=== PATIENT | male | born 1975 ===

== ENCOUNTER 2017-08-29 08:42 | Emergency (ER) | payer OTHER ==
[2017-08-29 09:07] LABS: #Basophils 0.1 thou/uL (0.0-0.2); #Eosinphils 0.1 thou/uL (0.0-0.7); #Lymphocytes 2.1 thou/uL (1.20-3.40); #Monocytes 0.5 thou/uL (0.11-0.59); #Neutrophils 2.6 thou/uL (1.40-6.50); %Basophils 1.4 % (0.0-1.0); %Eosinophils 1.4 % (0.0-10.0); %Monocytes 8.5 % (0.0-10.0); %Neutrophils 49.6 % (42.0-75.0); Hemoglobin 15.4 g/dL (14.0-18.0); Mean Corpuscular HGB CONC 34.3 g/dL (32.0-36.0); Mean Corpuscular Hemoglobin 32.1 pg (27.0-31.0); Mean Corpuscular Volume 93.6 fl (80.0-94.0); Mean Platelet Volume 7.3 fL (7.4-10.4); Platelet Count 190 thou/uL (130-400); RBC Distribution Width 12.1 % (11.5-14.5); Red Blood Cell (RBC) Count 4.79 mill/uL (4.70-6.10); White Blood Cell (WBC) Count 5.3 thou/uL (4.8-10.8)
[2017-08-29 09:31] LABS: CKMB 2.1 ng/mL (0-6.6); Troponin I Less than 0.010 ng/mL (< 0.028)
[2017-08-29 09:54] LABS: ALT (SGPT) 46 U/L (8-55); AST (SGOT) 29 U/L (5-34); Albumin 4.5 g/dL (3.5-5.0); Alkaline Phosphatase 43 U/L (40-150); Anion Gap 15 mmol/L (10-20); BUN (Urea Nitrogen) 11 mg/dL (8.9-20.6); Bilirubin, Total 0.7 mg/dL (0.2-1.2); CK (CPK) 230 U/L (30-200); Calc. Creatinine Clearance 0 mL/min (70-130); Calcium 9.5 mg/dL (7.8-10.44); Carbon Dioxide 25 mmol/L (22-29); Chloride 105 mmol/L (98-107); Estimated GFR-MDRD 70; Globulin 3.1 g/dL (2.4-3.5); Glucose 109 mg/dL (70-105); Potassium 4.5 mmol/L (3.5-5.1); Protein, Total 7.6 g/dL (6.0-8.3); Sodium 140 mmol/L (136-145)
--- NOTE | 2017-08-29 09:59 | RAD ---
PORTABLE CHEST 1 VIEW: Date; 08/29/17 Time: 0857 hours HISTORY: Chest pain. FINDINGS: The heart size is normal. No focal areas of consolidation, pneumothorax, or pleural effusions are see n. IMPRESSION: No radiographic evidence of acute cardiopulmonary process. POS: OFF
--- NOTE | 2017-08-29 10:35 | CT ---
CT ANGIOGRAM OF THORACIC AND ABDOMINAL AORTA: Date: 08/29/17 HISTORY: Chest pain. Left-sided chest pain with radiation to back. Evaluation for dissection. COMPARISON: None. TECHNIQUE: CT angiogram of thoracic and abdominal aorta are performed in the axial plane. Sagittal and coronal t hree-dimensional reformatted images are submitted for interpretation. FINDINGS: CHEST CT: No mediastinal mass, lymphadenopathy, or hematoma. Heart size is within normal limits. No pericardial fluid. Trachea and central bronchi are patent. No consolidation or masses. No pneumothorax or pleura l effusion. ABDOMEN CT: Hypoattenuation of the liver due to hepatic steatosis. The spleen, pancrease, and adrenal glands have appropriate enhancement. Symmetric enhancement of the kidneys. No obstructive uropathy. Visualized alimentary canal is unremarkable. Normal caliber appendix. Symmetric attenuation of psoas muscles. Scattered nonspecific mesenteric lymph nodes. No mesenteric mass, lymphadenopathy, free air, or free fluid. No lytic or blastic changes in the visualized spine. No fracture. CT ANGIOGRAM: There is appropriate enhancement and luminal diameter of the ascending thoracic aorta, aortic arch, d escending thoracic aorta, and abdominal aorta. Aortic bifurcation is unremarkable. The celiac artery origin, superior mesenteric artery origin, left and right renal artery ostia, and the inferior mesent [place] artery are unremarkable. No evidence of aneurysm or dissection. No periaortic fat stranding. The origin of the great vessels of the neck are also patent and unremarkable. Adequate contrast opacification of the pulmonary arterial system to the level of the lobar arteries. No filling defect to suggest thromboembolism. IMPRESSION: No evidence of dissection. POS: [facility]
[2017-08-29] MEDS ORDERED: Aspirin 325 MG TAB ONE (10:44)
[2017-08-29 11:35] LABS: Troponin I Less than 0.010 ng/mL (< 0.028)
== END 2017-08-29 12:03 | disposition home or self-care (01) ==
LOC: ERS 08:42
DX: R07.9 Chest pain, unspecified (principal)
CPT/HCPCS: 36415; 71045; 71275; 80053; 82550; 82553; 84484; 85025; 85379; 93005; 94760